=== PATIENT | male | born 1985 | race American Indian/Alaskan Native ===

== ENCOUNTER 2019-11-09 06:47 | Emergency (ER) | payer SELFPAY ==
--- NOTE | 2019-11-09 08:03 | XRay Report ---
CHEST 2 VIEWS INDICATION: cough. COMPARISON: None. FINDINGS: Support devices: None. Heart: Within normal limits. Lungs/Pleura: No acute air space or interstitial disease. No significant pleural effusion. IMPRESSION: No acute findings. Signer Name: Bernard Austin MD Signed: 11/09/2019 7:58 AM Workstation Name: [id number]
--- NOTE | 2019-11-09 08:15 | Emergency Department Report ---
ED General Adult HPI - General Chief complaint: Dyspnea/Respdistress Stated complaint: HEADACHE/SOB/BODYACHES Time Seen by Provider: 11/09/19 07:59 Source: patient Mode of arrival: Ambulatory Limitations: No Limitations - History of Present Illness Initial comments: 34-year-old -[place] male patient without significant past medical history presents with complaints of cough, body aches, tactile fever, and headache for the past 3 days. Patient states his headache is not improving with Tylenol or ibuprofen. He denies any vision changes, dizziness, nausea/vomiting/diarrhea, numbness/tingling/weakness in his limbs, neck pain/stiffness, or known sick contacts. Patient states his cough is nonproductive and states he is feeling mildly short of breath without chest pain. He denies any history of smoking or asthma. He does state he has had a migraine 1 or 2 - Related Data Previous Rx's Medication Instructions Recorded Last Taken Type Ibuprofen [Motrin 800 MG tab] 800 mg PO Q8HR PRN #21 tablet 11/09/19 Unknown Rx Allergies Allergy/AdvReac Type Severity Reaction Status Date / Time No Known Allergies Allergy Verified 11/09/19 06:56 ED Review of Systems ROS: Stated complaint: HEADACHE/SOB/BODYACHES Other details as noted in HPI Constitutional: chills, fever, malaise, weakness. denies: diaphoresis Eyes: denies: eye pain, vision change ENT: denies: throat pain Respiratory: cough, shortness of breath Cardiovascular: denies: chest pain Gastrointestinal: denies: abdominal pain, nausea, vomiting, diarrhea Musculoskeletal: myalgia Skin: denies: rash, lesions Neurological: headache. denies: weakness, numbness, paresthesias, confusion, abnormal gait ED Past Medical Hx - Past Medical History Previous Medical History?: No - Surgical History Past Surgical History?: No - Social History Smoking Status: Never Smoker Substance Use Type: None - Medications Home Medications: Home Medications Medication Instructions Recorded Confirmed Last Taken Type Ibuprofen [Motrin 800 MG tab] 800 mg PO Q8HR PRN #21 tablet 11/09/19 Unknown Rx ED Physical Exam - General Limitations: No Limitations General appearance: alert, in no apparent distress - Head Head exam: Present: atraumatic, normocephalic - Eye Eye exam: Present: normal appearance, PERRL, EOMI - ENT ENT exam: Present: mucous membranes moist - Neck Neck exam: Present: normal inspection, full ROM. Absent: tenderness, meningismus - Respiratory Respiratory exam: Present: normal lung sounds bilaterally. Absent: respiratory distress - Cardiovascular Cardiovascular Exam: Present: regular rate, normal rhythm. Absent: systolic murmur, diastolic murmur, rubs, gallop - GI/Abdominal GI/Abdominal exam: Present: soft, normal bowel sounds. Absent: distended, tenderness, guarding, rebound, rigid - Back Exam Back exam: Present: normal inspection, full ROM - Neurological Exam Neurological exam: Present: alert, oriented X3, CN II-XII intact, normal gait. Absent: motor sensory deficit - Psychiatric Psychiatric exam: Present: normal affect, normal mood - Skin Skin exam: Present: warm, dry, intact, normal color. Absent: rash ED Course Vital Signs 11/09/19 11/09/19 06:52 12:25 Temperature 98.7 F 99.3 F Pulse Rate 98 H 78 Respiratory 19 18 Rate Blood Pressure 141/87 Blood Pressure 129/85 [Left] O2 Sat by Pulse 98 97 Oximetry ED Medical Decision Making - Lab Data Result diagrams: 11/09/19 08:48 11/09/19 08:48 Lab Results 11/09/19 11/09/19 Range/Units 08:48 08:48 WBC 3.9 L (4.5-11.0) K/mm3 RBC 5.07 H (3.65-5.03) M/mm3 Hgb 15.4 H (11.8-15.2) gm/dl Hct 45.6 (35.5-45.6) % MCV 90 (84-94) fl MCH 30 (28-32) pg MCHC 34 (32-34) % RDW 13.7 (13.2-15.2) % Plt Count 243 (140-440) K/mm3 Lymph % (Auto) 18.3 (13.4-35.0) % [place] % (Auto) 11.5 H (0.0-7.3) % Eos % (Auto) 0.0 (0.0-4.3) % Baso % (Auto) 0.3 (0.0-1.8) % Lymph # 0.7 L (1.2-5.4) K/mm3 [place] # 0.5 (0.0-0.8) K/mm3 Eos # 0.0 (0.0-0.4) K/mm3 Baso # 0.0 (0.0-0.1) K/mm3 Seg Neutrophils % 69.9 (40.0-70.0) % Seg Neutrophils # 2.7 (1.8-7.7) K/mm3 Sodium 138 (137-145) mmol/L Potassium 4.0 (3.6-5.0) mmol/L Chloride 101.4 (98-107) mmol/L Carbon Dioxide 22 (22-30) mmol/L Anion Gap 19 mmol/L BUN 6 L (9-20) mg/dL Creatinine 0.8 (0.8-1.5) mg/dL Estimated GFR > 60 ml/min BUN/Creatinine Ratio 8 % Glucose 100 (75-100) mg/dL Calcium 8.7 (8.4-10.2) mg/dL Total Bilirubin 0.50 (0.1-1.2) mg/dL AST 18 (5-40) units/L ALT 13 (7-56) units/L Alkaline Phosphatase 61 (35-129) units/L Total Protein 7.2 (6.3-8.2) g/dL Albumin 4.1 (3.9-5) g/dL Albumin/Globulin Ratio 1.3 % - Radiology Data Radiology results: report reviewed No acute findings noted on two-view chest x-ray per radiology - Medical Decision Making Patient here with complaints of headache, body aches, chills, cough, shortness of breath for the past few days. Neuro exam is normal. Chest x-ray is negative for acute findings. No significant abnormalities noted on labs. Patient given Decadron and Toradol IV along with 1 L of saline-states his headache is now resolved. Patient's vitals are normal he is well-appearing. He is stable for discharge home. Discussed possibility of viral syndrome versus COVID-19 and ad vised patient to self quarantine. Patient also provided with list of facilities that provide free COVID testing. Strict return precautions were discussed in great detail with patient who verbalized understanding. Critical care attestation.: If time is entered above; I have spent that time in minutes in the direct care of this critically ill patient, excluding procedure time. ED Disposition Clinical Impression: Viral syndrome Headache Qualifiers: Headache type: unspecified Headache chronicity pattern: acute headache Intractability: not intractable Qualified Code(s): R51 - Headache Disposition: DC- TO HOME OR SELFCARE Is pt being admited?: No Condition: Stable Instructions: COVID-19, Viral Syndrome (ED) Prescriptions: Ibuprofen [Motrin 800 MG tab] 800 mg PO Q8HR PRN #21 tablet PRN Reason: fever/pain/headache Referrals: LETITIA MEDINA MD [Primary Care Provider] - 3-5 Days
[2019-11-09 10:10] LABS: Basophils % (Auto) 0.3 % (0.0-1.8); Hematocrit 45.6 % (35.5-45.6); Hemoglobin 15.4 gm/dl (11.8-15.2); Lymphocytes # (Auto) 0.7 K/mm3 (1.2-5.4); Lymphocytes % (Auto) 18.3 % (13.4-35.0); Mean Corpuscular HGB Conc 34 % (32-34); Mean Corpuscular Volume 90 fl (84-94); Monocytes # (Auto) 0.5 K/mm3 (0.0-0.8); Monocytes % (Auto) 11.5 % (0.0-7.3); Platelet Count 243 K/mm3 (140-440); Red Blood Count 5.07 M/mm3 (3.65-5.03); Red Cell Distribution Width 13.7 % (13.2-15.2)
[2019-11-09 10:22] LABS: Alanine Aminotransferase 13 units/L (7-56); Albumin 4.1 g/dL (3.9-5); BUN/Creatinine Ratio 8; Blood Urea Nitrogen 6 mg/dL (9-20); Calcium 8.7 mg/dL (8.4-10.2); Hemolysis Index 29
[2019-11-09] MEDS ORDERED: SODIUM CHLORIDE 0.9% 1000 ML 1,000 ML IV ONE (10:47)
[2019-11-09] MEDS ORDERED: KETOROLAC 30 MG/1 ML INJ IV ONE (10:47)
[2019-11-09] MEDS ORDERED: dexAMETHasone 20 MG/5 ML VIAL IV ONE (10:47)
[2019-11-09 12:34] VITALS: BP 129/85
== END 2019-11-09 12:29 | disposition home or self-care (01) ==
LOC: ED 06:47
DX: R51 Headache (principal); B34.9 Viral infection, unspecified; Z79.1 Long term (current) use of non-steroidal anti-inflammatories (NSAID)
CPT/HCPCS: 36415; 71046; 80053; 85025; 96374; 96375; 99284; J1100; J1885; J7030